=== PATIENT | female | born 1970 | race Hispanic/Latino ===

== ENCOUNTER 2024-04-03 06:18 | Day surgery (SDC) | payer MEDICAID ==
[2024-04-03] VITALS (9 sets, daily range): BP systolic 105–163; BP diastolic 63–87; PULSE 57–69; RESP 12–21; TEMP 97.4–98.2
[~2024-04-03] VITALS: Ht 162.6 cm; Wt 87.5 kg
[~2024-04-03 06:18] MED LIST: AMLO-257 PO; ASPI-1005 PO; ATOR40TA69 PO; CLOP75TA32 PO; DICY20TA3 PO; LEVE10006 PO; LINA145C PO; LISI10TA24 PO; METO-408 PO; NORT10CA2 PO; OMEP40CA21 PO; TIZA-211 PO
[2024-04-03] MEDS: 0.9%NACL 1000ML 1,000 ML IV ONE (07:35)
[2024-04-03] MEDS ORDERED: proPOFol 10 MG/ML 20ML VIAL IV ONE ×2 (08:05→08:17)
== END 2024-04-03 09:30 | disposition home or self-care (01) ==
LOC: DAH 06:18
PROVIDERS: ATTEND Internal Medicine Gastroenterology
DX: K21.00 Gastro-esophageal reflux disease with esophagitis, without bleeding (principal); K44.9 Diaphragmatic hernia without obstruction or gangrene; K29.50 Unspecified chronic gastritis without bleeding; I10 Essential (primary) hypertension; K59.04 Chronic idiopathic constipation; I25.10 Atherosclerotic heart disease of native coronary artery without angina pectoris; E78.5 Hyperlipidemia, unspecified; Z98.890 Other specified postprocedural states; Z79.899 Other long term (current) drug therapy; Z79.01 Long term (current) use of anticoagulants; Z95.5 Presence of coronary angioplasty implant and graft; Z86.73 Personal history of transient ischemic attack (TIA), and cerebral infarction without residual deficits
CPT/HCPCS: 81025; 43239; J7030; J3490; A4615; A4215 ×2; A4223; A4222; A4221; A4663; A4606; J2704